=== PATIENT | female | born 1955 | race Two or more races ===

== ENCOUNTER 2018-12-24 10:46 | Inpatient (IN) | payer OTHER ==
[~2018-12-24] VITALS: Ht 162.6 cm; Wt 67.1 kg
[2019-01-04] MEDS ORDERED: FLECAINIDE ACET50 MG PO (12:16)
[2019-01-04] MEDS ORDERED: FORTAMET500 MG PO (12:16)
[2019-01-04] MEDS ORDERED: FARXIGA5 MG PO (12:20)
[2019-01-04] MEDS ORDERED: ZOCOR20 MG PO (12:20)
[2019-01-04] MEDS ORDERED: [UNRECOGNIZED DRUG - OTHER] PO (12:22)
[2019-01-13] MEDS ORDERED: ULTRACET PO (13:17)
[2019-01-13] MEDS ORDERED: POLY119PG PO (13:17)
[2019-01-13] MEDS ORDERED: SURFAK240 M1 PO (13:18)
[2019-01-13] MEDS ORDERED: NEURONTIN800 MG PO (13:19)
== END 2019-01-14 08:00 | disposition home or self-care (01) | DRG 743 ==
LOC: O/R 01-13 07:00 → CIR.AMB 01-13 07:00 → O/R 01-13 08:59 → SURG 01-13 08:59 → OB/GYN 01-13 08:59 → SURG 01-13 09:15 → EDSTATUS 01-13 09:15 → SURG 01-13 09:30 → O/R 01-13 15:42 → OB/GYN 01-13 15:42 → O/R 01-14 08:00 → CIR.AMB 01-14 09:00 → OB/GYN 01-14 13:58
PROVIDERS: Obstetrics & Gynecology; ADMIT Surgery
PROC: 0YUA4JZ Supplement Bilateral Inguinal Region with Synthetic Substitute, Percutaneous Endoscopic Approach (ICD-10-PCS; 2019-01-13)
PROC: 0KUK0KZ Supplement Right Abdomen Muscle with Nonautologous Tissue Substitute, Open Approach (ICD-10-PCS; 2019-01-13)
PROC: 0KUL0KZ Supplement Left Abdomen Muscle with Nonautologous Tissue Substitute, Open Approach (ICD-10-PCS; 2019-01-13)
PROC: 0WQF4ZZ Repair Abdominal Wall, Percutaneous Endoscopic Approach (ICD-10-PCS; 2019-01-13)
PROC: 0UT97ZZ Resection of Uterus, Via Natural or Artificial Opening (ICD-10-PCS; principal; 2019-01-13 09:30)
PROC: 0USG7ZZ Reposition Vagina, Via Natural or Artificial Opening (ICD-10-PCS; 2019-01-13 09:30)
DX: D25.1 Intramural leiomyoma of uterus (principal); N81.3 Complete uterovaginal prolapse; K40.20 Bilateral inguinal hernia, without obstruction or gangrene, not specified as recurrent; K42.9 Umbilical hernia without obstruction or gangrene; K43.2 Incisional hernia without obstruction or gangrene; N72 Inflammatory disease of cervix uteri

== ENCOUNTER 2019-08-19 11:06 | Inpatient (IN) | payer OTHER ==
[~2019-08-19] VITALS: Ht 162.6 cm; Wt 66.7 kg
[~2019-08-19 11:06] MED LIST: B COMPLEX1 EACH PO; FARXIGA5 MG PO; FLECAINIDE ACET50 MG PO; FORTAMET500 MG PO; METFORMIN HCL500 M3 PO; NEURONTIN800 MG PO; POLY119PG PO; PROBIOTIC1 EAC2 PO; SURFAK240 M1 PO; ULTRACET PO; ZOCOR20 MG PO; [UNRECOGNIZED DRUG - OTHER] PO; [UNRECOGNIZED DRUG - OTHER] PO
== END 2019-08-21 14:27 | disposition home or self-care (01) | DRG 355 ==
LOC: CIR.AMB 11:06 → SURG 17:10 → O/R 17:10 → SURG 17:55
PROVIDERS: ADMIT Surgery
PROC: 0WUF4JZ Supplement Abdominal Wall with Synthetic Substitute, Percutaneous Endoscopic Approach (ICD-10-PCS; principal; 2019-08-19 07:15)
DX: K42.0 Umbilical hernia with obstruction, without gangrene (principal); K43.0 Incisional hernia with obstruction, without gangrene